=== PATIENT | female | born 1945 | race Caucasian/White ===

== ENCOUNTER → 2018-03-30 | Outpatient (CLI) | payer OTHER | END | disposition home or self-care (01) | LOC: LAB 19:20 → LAB SHORT 19:20 | PROVIDERS: Family Medicine | DX: Z12.4 Encounter for screening for malignant neoplasm of cervix (principal) | CPT/HCPCS: G0145 ==

== ENCOUNTER → 2018-12-28 | Outpatient (CLI) | payer OTHER ==
[2018-12-28 14:51] LABS: BASOPHILS ABSOLUTE AUTO 0.04 K/mm3 (0.00-0.23); BASOPHILS PERCENT AUTO 0 % (0-2); EOSINOPHILS ABSOLUTE AUTO 0.04 K/mm3 (0.00-0.68); EOSINOPHILS PERCENT AUTO 0 % (0-6); Hematocrit 40.4 % (33.0-51.0); Hemoglobin 13.5 g/dL (11.5-16.0); IMMATURE GRAN ABSOLUTE AUTO 0.03 K/mm3 (0.00-0.10); IMMATURE GRAN PERCENT AUTO 0 % (0-1); LYMPHOCYTES ABSOLUTE AUTO 1.37 K/mm3 (0.84-5.20); LYMPHOCYTES PERCENT AUTO 12 % (21-46); MONOCYTES ABSOLUTE AUTO 0.31 K/mm3 (0.16-1.47); MONOCYTES PERCENT AUTO 3 % (4-13); Mean Corpuscular HGB 30.8 pg (26.0-34.0); Mean Corpuscular HGB Conc 33.4 g/dL (31.5-36.5); Mean Corpuscular Volume 92 fL (80-100); Mean Platelet Volume 9.3 fL (9.1-12.4); NEUTROPHILS ABSOLUTE AUTO 9.25 K/mm3 (1.96-9.15); NEUTROPHILS PERCENT AUTO 84 % (41-73); Platelet Count 336 K/mm3 (150-400); RDW Coefficient Variation 12.8 % (11.7-14.2); RDW Standard Deviation 43.3 fL (35.1-46.3); Red Blood Cell Count 4.38 M/mm3 (3.80-5.20); White Blood Cell Count 11.04 K/mm3 (4.00-11.30)
[2018-12-28 15:04] LABS: Alanine Aminotransfer (ALT/SGP 17 U/L (12-78); Albumin, Blood 4.1 g/dL (3.4-5.0); Alk Phos 69 U/L (40-126); Anion Gap 7 mmol/L (6-16); Aspartate Aminotrans (AST/SGOT 21 U/L (12-37); Bilirubin, Total 0.6 mg/dL (0.1-1.0); Blood Urea Nitrogen 27 mg/dL (8-24); CO2, Blood 28 mmol/L (21-32); Chloride, Blood 106 mmol/L (98-108); Creatinine, Blood 0.73 mg/dL (0.40-1.00); Globulin, Blood 4.3 g/dL (2.2-4.0); Glomerular Filtration Rate >60 (60-); Glucose, Blood 118 mg/dL (70-99); Potassium, Blood 4.4 mmol/L (3.5-5.5); Sodium, Blood 141 mmol/L (136-145); Total Protein, Blood 8.4 g/dL (6.4-8.2)
[2018-12-28 15:05] LABS: Troponin I <0.017 ng/mL (0.000-0.040)
== END | disposition home or self-care (01) ==
LOC: LAB EV 14:47 → LAB SHORT 14:47
PROVIDERS: Physician Assistant
DX: R55 Syncope and collapse (principal)
CPT/HCPCS: 80053; 84484; 85025

== ENCOUNTER 2022-10-15 09:37 | Day surgery (SDC) | payer OTHER | END 2022-10-15 11:17 | disposition home or self-care (01) | LOC: ORSCSDS 09:37 | PROC: 08RK3JZ Replacement of Left Lens with Synthetic Substitute, Percutaneous Approach (ICD-10-PCS; principal; 2022-10-15) | DX: H25.12 Age-related nuclear cataract, left eye (principal); Z96.1 Presence of intraocular lens; I10 Essential (primary) hypertension; Z87.891 Personal history of nicotine dependence; Z79.899 Other long term (current) drug therapy ==

== ENCOUNTER 2024-09-07 07:02 | Day surgery (SDC) | payer OTHER ==
[~2024-09-07] VITALS: Ht 162.6 cm; Wt 76.4 kg
[~2024-09-07 07:02] MED LIST: AMLO5
[2024-09-07] MEDS ORDERED: Dexmedetomidine HCL 200 MCG / 2 ML ONE (07:05)
[2024-09-07] MEDS ORDERED: CeFAZolin Sodium 2,000 MG VIAL ONE (07:38)
[2024-09-07] MEDS ORDERED: AMLO10 PO (07:47)
--- NOTE | 2024-09-07 08:43 | NUR ---
09/07/24 0843 Juancho Skelton PT TRANSPORTED TO IMAGING VIA FOR SENTINAL.
[2024-09-07] MEDS ORDERED: FentaNYL Citrate 50 MCG/ML 2 ML Injection ONE (09:12)
[2024-09-07] MEDS ORDERED: Dexamethasone Sod Phos 10 MG/ML 1ML VIAL ONE (09:13)
[2024-09-07] MEDS ORDERED: Ondansetron HCl 2 MG / ML 2ML Vial ONE (09:13)
[2024-09-07] MEDS ORDERED: Phenylephrine HCl 100 MCG/ML-NS 10MLSYR (1MG/10ML) ONE (09:19)
[2024-09-07] MEDS ORDERED: Bupivacaine 0.5% HCl 5 MG/ML 30MLVIAL XX ONE (09:28)
--- NOTE | 2024-09-07 10:24 | NUR ---
09/07/[address]ED, SPECIMEN IS GOOD. DR. RODRIGUEZ NOTIFIED
--- NOTE | 2024-09-07 11:00 | NUR ---
09/07/24 1100 Laverne Rutledge CALLED AND LEFT MESSAGE
[2024-09-07] MEDS ORDERED: HYDROcodone 5-APAP 325 TAB ONE (11:36)
[2024-09-07 11:41] VITALS: BP 140/69
== END 2024-09-07 11:48 | disposition home or self-care (01) ==
LOC: ORSCSDS 07:02 → NM 08:30 → ORSCSDS 08:30
PROVIDERS: Surgery
PROC: 07B50ZX Excision of Right Axillary Lymphatic, Open Approach, Diagnostic (ICD-10-PCS; principal; 2024-09-07 09:00)
PROC: 0HBT0ZZ Excision of Right Breast, Open Approach (ICD-10-PCS; principal; 2024-09-07 09:00)
DX: C50.411 Malignant neoplasm of upper-outer quadrant of right female breast (principal); D36.0 Benign neoplasm of lymph nodes; Z17.0 Estrogen receptor positive status [ER+]; Z17.21 Progesterone receptor positive status; Z17.32 Human epidermal growth factor receptor 2 negative status; I10 Essential (primary) hypertension; Z87.891 Personal history of nicotine dependence; Z79.899 Other long term (current) drug therapy
CPT/HCPCS: 38792; 76098; 88307; 88341; 88342; A9270; A9520; J0690; J1100; J2371; J2405; J2704; J3010; J7120; Q9968